=== PATIENT | female | born 1940 | race Asian ===

== ENCOUNTER 2020-10-17 12:53 | Emergency (ER) | payer MEDICARE, OTHER ==
[~2020-10-17] VITALS: Ht 160 cm; Wt 47.3 kg
[2020-10-17 12:55] VITALS: BP 0/0
[2020-10-17] MEDS ORDERED: EPINEPHrine 1:10,000 [1 MG/10 ML] SYRINGE IVP ONE (13:06)
[2020-10-17] MEDS ORDERED: 0.9% SODIUM CHLORIDE 1,000 ML BAG IV ONE (13:06)
[2020-10-17] MEDS ORDERED: MORPHINE SULFATE 2 MG/ML SYRINGE ONE (13:12)
== END 2020-10-17 16:47 ==
LOC: EMS 13:05
DX: I46.9 Cardiac arrest, cause unspecified (principal); J96.90 Respiratory failure, unspecified, unspecified whether with hypoxia or hypercapnia; E11.9 Type 2 diabetes mellitus without complications; I10 Essential (primary) hypertension; Z86.73 Personal history of transient ischemic attack (TIA), and cerebral infarction without residual deficits
CPT/HCPCS: 31500; 92950; 99291; J0171; J7030; J2270